=== PATIENT | female | born 1945 | race Caucasian/White ===

== ENCOUNTER 2019-07-24 15:54 | Inpatient (IN) | payer OTHER ==
[~2019-07-24] VITALS: Ht 162.6 cm; Wt 73.2 kg
[~2019-07-24 15:54] MED LIST: ASPI325T4 PO; LOVA40TA72 PO; POTA80TA PO; QUET100T46 PO; TRAZ100T2 PO
[2019-07-24] MEDS ORDERED: IPRATROPIUM BROM 0.5 MG/2.5ML INH SOL NEB ONE ×2 (16:15→18:30)
[2019-07-24] MEDS ORDERED: methylPREDNISolone SOD SUCC 125 MG/2 ML VL IV ONE (16:15)
[2019-07-24] MEDS ORDERED: ALBUTEROL SULF 2.5 MG/0.5ML(0.5%) NEB SOLN NEB ONE ×2 (16:15→18:30)
[2019-07-24] MEDS ORDERED: LEVOFLOXACIN 500MG 100 ML IV ONE (16:15)
[2019-07-24 16:42] LABS: Basophils # (auto) 0 uL; Basophils % (auto) 0.5 % (0.0-2.0); Eosinophils # (auto) 0.2 uL; Eosinophils % (auto) 2.5 % (0.0-7.0); Hematocrit 39.5 % (36.0-46.0); Hemoglobin 13.1 g/dL (12.2-16.2); Lymphocytes # (auto) 1.6 uL; Lymphocytes % (auto) 18.6 % (10.0-50.0); Mean Corpuscular Hemoglobin 28.6 pg (28.0-32.0); Mean Corpuscular Hgb Conc. 33.1 g/dL (32.0-36.0); Mean Corpuscular Volume 86.4 fL (80.0-100.0); Monocytes # (auto) 0.6 uL; Monocytes % (auto) 7.2 % (0.0-12.0); Neutrophils # (auto) 5.9 uL; Neutrophils % (auto) 71.2 % (37.0-80.0); Platelet Count (auto) 298 10^3/uL (140-450); Red Blood Cells 4.57 10^6/uL (4.0-5.20); Red Cell Distribution Width 14.2 % (11.8-14.3); White Blood Cell 8.3 10^3/uL (4.4-10.8)
[2019-07-24] MEDS ORDERED: diphenhdrAMINE HCL 50 MG/1 ML VL IV ONE (16:45)
[2019-07-24 16:50] LABS: Albumin 3.3 g/dL (3.4-5.0); Anion Gap 8 (5-15); Aspartate Aminotransferase 193 U/L (15-37); BUN/Creatinine Ratio 10.4; Blood Urea Nitrogen 8 mg/dL (7-18); Calcium 8.6 mg/dL (8.5-10.1); Carbon Dioxide 24 mmol/L (21-32); Chloride 104 mmol/L (98-107); GFR African American 95 mL/min; GFR Non-African American 78 mL/min; Glucose 110 mg/dL (74-106); Potassium 3.3 mmol/L (3.5-5.1); Sodium 136 mmol/L (136-145)
[2019-07-24 16:54] LABS: Alanine Aminotransferase 145 U/L (13-56); Alkaline Phosphatase 192 U/L (45-117); Bilirubin, Total 0.4 mg/dL (0.2-1.0); Total Protein 7.5 g/dL (6.4-8.2)
[2019-07-24 17:32] LABS: INR 0.98 (0.9-1.15); Partial Thromboplastin Time 30.2 sec (23.64-32.05)
[2019-07-24 19:43] LABS: Urine Bacteria NONE SEEN /hpf (None Seen); Urine Blood TRACE /uL (Negative); Urine Mucus FEW (None Seen); Urine Specific Gravity 1.005 (1.001-1.035); Urine WBC 1 /hpf (0 - 5)
[2019-07-24] MEDS ORDERED: OXYB5TAB24 PO (20:59)
[2019-07-24] MEDS ORDERED: NITR100C6 PO (20:59)
[2019-07-24] MEDS ORDERED: GABA100C9 PO (20:59)
[2019-07-24] MEDS ORDERED: TEMAZEPAM 15 MG CAP PO PRN (21:15)
[2019-07-24] MEDS ORDERED: POTASSIUM CHL 20 Meq TABLET PO ONE (21:15)
[2019-07-24] MEDS ORDERED: ACETAMINOPHEN 325 MG TAB PO PRN (21:15)
[2019-07-24] MEDS ORDERED: ONDANSETRON HCL 4 MG/2 ML VIAL IV PRN (21:15)
[2019-07-24] MEDS ORDERED: DOCUSATE SOD 100 MG CAP PO PRN (21:15)
[2019-07-24] MEDS: QUEtiapine FUMARATE 100 MG TAB PO SCH (22:00)
[2019-07-24] MEDS: methylPREDNISolone SOD SUCC 125 MG/2 ML VL IV SCH (22:03)
[2019-07-24] MEDS: FAMOTIDINE 20 MG TAB PO SCH (22:03)
[2019-07-24] MEDS: GABAPENTIN 100 MG CAP PO SCH (22:03)
[2019-07-24] MEDS ORDERED: traZODone HCL 50 MG TAB PO ONE (22:15)
[2019-07-24] MEDS ORDERED: IOHEXOL 350 MG/ML 100ML IJ ONE (22:52)
[2019-07-25] VITALS (7 sets, daily range): BP systolic 81–130; BP diastolic 53–71
--- NOTE | 2019-07-25 00:15 | NUR ---
Telemetry admit from ER JOSUÉDENZEL Mendiola admitted to Telemetry unit after SBAR received. Patient oriented to Asiya Fontana, primary RN, unit, room, bed, and unit policies regarding patient care and visiting hours. Patient now on continuous telemetry monitoring, tele box #16 and telemetry reading on arrival to unit is SR 90. Patient placed on bedside oxygen, weighed by bedscale and encouraged to call if they need something. All questions and concerns addressed, patient verbalized understanding.
--- NOTE | 2019-07-25 00:23 | NUR ---
RT AT BEDSIDE FOR SCHEDULED BREATHING TREATMENT
[2019-07-25] MEDS: ALBUTEROL SULF 2.5 MG/0.5ML(0.5%) NEB SOLN NEB SCH ×4 (00:25→17:42)
[2019-07-25] MEDS: IPRATROPIUM BROM 0.5 MG/2.5ML INH SOL NEB SCH ×4 (00:25→17:41)
--- NOTE | 2019-07-25 00:30 | NUR ---
PATIENT WAS PLACED ON OXYMIZER O2 AT 6L
--- NOTE | 2019-07-25 02:00 | NUR ---
PLACED PATIENT ON BEDPAN. PATIENT IS SOB WITH MINIMAL EXERTION.
[2019-07-25 06:23] LABS: Basophils # (auto) 0 uL; Basophils % (auto) 0.1 % (0.0-2.0); Eosinophils # (auto) 0 uL; Hematocrit 38.5 % (36.0-46.0); Lymphocytes # (auto) 0.8 uL; Lymphocytes % (auto) 8.9 % (10.0-50.0); Mean Corpuscular Hgb Conc. 33.8 g/dL (32.0-36.0); Mean Corpuscular Volume 85.8 fL (80.0-100.0); Monocytes # (auto) 0.1 uL; Monocytes % (auto) 1.6 % (0.0-12.0); Neutrophils # (auto) 7.6 uL; Neutrophils % (auto) 89.4 % (37.0-80.0); Platelet Count (auto) 307 10^3/uL (140-450); Red Blood Cells 4.49 10^6/uL (4.0-5.20); Red Cell Distribution Width 14.1 % (11.8-14.3); White Blood Cell 8.5 10^3/uL (4.4-10.8)
[2019-07-25 06:37] LABS: Albumin 3.3 g/dL (3.4-5.0); Calcium 9.3 mg/dL (8.5-10.1); Potassium 4.4 mmol/L (3.5-5.1)
--- NOTE | 2019-07-25 06:40 | NUR ---
PATIENT UP TO COMMODE WITH ASSISTANCE AND USING OXYMIZER AT 6L. PATIENT TOLERATED WELL, ASSISTED PATIENT BACK TO BED. BED RAILS UP X2, HEAD OF BED IS UP >30 DEGREES.
[2019-07-25 06:42] LABS: BUN/Creatinine Ratio 12.9; Bilirubin, Total 0.2 mg/dL (0.2-1.0); Total Protein 7.7 g/dL (6.4-8.2)
--- NOTE | 2019-07-25 06:45 | NUR ---
BACK PAIN PATIENT COMPLAINS OF BACK PAIN 04/26. WILL ADMINISTER PAIN MED PER MD ORDERS ON eMAR.
[2019-07-25] MEDS: HYDROcodone-ACET 5/325MG TAB PO PRN ×3 (06:48→22:18)
--- NOTE | 2019-07-25 07:15 | NUR ---
Opening Shift Note Report received and assumed care of patient, awake,alert and oriented No S/S of distress or pain. Instructed on POC and Nursing routines, Patient reminded and Instructed to call for assistance,call light within reach patient verbalized understanding. will continue to monitor for changes Q1hr and PRN.
[2019-07-25] MEDS ORDERED: LEVOFLOXACIN 500MG 100 ML IV SCH (10:00)
[2019-07-25] MEDS: OXYBUTYNIN CHL 5 MG TAB PO SCH (10:32)
[2019-07-25] MEDS: FAMOTIDINE 20 MG TAB PO SCH ×2 (10:32→21:21)
[2019-07-25] MEDS: ENOXAPARIN SOD 40 MG/0.4 ML SYRINGE SC SCH (10:32)
--- NOTE | 2019-07-25 12:15 | NUR ---
PER REPORT FROM SPEECH AND LANGUAGE CLINICIAN NURSE,PATIENT HAD A REACTION TO LEVAQUIN. DR. Elayne YORK CALLED AND INFORMED,CLARIFIED IF OK TO GIVE DOSE,RECEIVED INSTRUCTION TO CONTINUE TO GIVE LEVAQUIN AND SOLUMEDROL
[2019-07-25] MEDS: methylPREDNISolone SOD SUCC 125 MG/2 ML VL IV SCH ×2 (12:39→21:21)
--- NOTE | 2019-07-25 14:00 | NUR ---
PATIENT OOB TO BSC,SLIGHT SOB BUT NO DISTRESS NOTED WITH ACTIVITY
--- NOTE | 2019-07-25 17:47 | NUR ---
VISITING AT BEDSIDE
--- NOTE | 2019-07-25 19:12 | NUR ---
Resting no distress no discomfort,report given to Asiya DOMINGUEZ RN
--- NOTE | 2019-07-25 19:15 | NUR ---
OPENING SHIFT NOTE- NOC PATIENT IS ALERT AND ORIENTED X4 AND IS SITTING UP IN BED. PATIENT IS WEARING OXYMIZER AT 6L AND TOLERATES WELL. DISCUSSED POC WITH PATIENT AND INSTRUCTED PATIENT TO CALL PRN; PATIENT VERBALIZED UNDERSTANDING. WILL CONTINUE TO MONITOR Q1H AND PRN.
[2019-07-25] MEDS: QUEtiapine FUMARATE 100 MG TAB PO SCH (19:35)
--- NOTE | 2019-07-25 19:45 | NUR ---
ASSISTED PATIENT WITH ORAL CARE.
[2019-07-25] MEDS: GABAPENTIN 100 MG CAP PO SCH (21:21)
--- NOTE | 2019-07-25 22:55 | NUR ---
LABORER TREE TAPPING NASEEM AWARE THAT PATIENT WILL BE NPO FOR ORDERED ULTRA SOUND IN THE MORNING.
--- NOTE | 2019-07-25 23:20 | NUR ---
PATIENT UP TO BEDSIDE COMMODE; SOB WITH LIGHT EXERTION. PATIENT ASSISTED BACK INTO BED.
--- NOTE | 2019-07-26 | NUR ---
PATIENT NPO PATIENT IS AWARE OF NPO STATUS FOR ULTRASOUND IN THE MORNING.
[2019-07-26 04:49] VITALS: BP 123/64
[2019-07-26 06:58] LABS: Basophils # (auto) 0 uL; Basophils % (auto) 0.2 % (0.0-2.0); Eosinophils # (auto) 0 uL; Hemoglobin 12.8 g/dL (12.2-16.2); Lymphocytes # (auto) 1.4 uL; Lymphocytes % (auto) 6.6 % (10.0-50.0); Mean Corpuscular Hemoglobin 28.3 pg (28.0-32.0); Mean Corpuscular Hgb Conc. 32.9 g/dL (32.0-36.0); Monocytes # (auto) 0.7 uL; Monocytes % (auto) 3.1 % (0.0-12.0); Neutrophils # (auto) 18.9 uL; Neutrophils % (auto) 90.1 % (37.0-80.0); Platelet Count (auto) 331 10^3/uL (140-450); Red Blood Cells 4.53 10^6/uL (4.0-5.20); Red Cell Distribution Width 14.4 % (11.8-14.3)
[2019-07-26 07:08] LABS: Calcium 9.5 mg/dL (8.5-10.1); Potassium 4.8 mmol/L (3.5-5.1)
[2019-07-26 07:10] LABS: BUN/Creatinine Ratio 17.2
--- NOTE | 2019-07-26 07:30 | NUR ---
Opening Shift Note Assumed care of patient, awake, alert, and oriented x4. No S/S of distress/SOB, but patient is reporting generalized body pain of 7/10. IV is in right forearm 20 gauge and is asymptomatic, intact, patent, and saline locked. Bed is locked and in lowest position and call light is within reach. Instructed on POC and to call for assist PRN, and patient verbalized understanding. Will continue to monitor for changes Q1hr and PRN.
--- NOTE | 2019-07-26 07:30 | NUR ---
personnel technician at bedside.
[2019-07-26] MEDS: IPRATROPIUM BROM 0.5 MG/2.5ML INH SOL NEB SCH ×3 (07:36→11:31)
[2019-07-26] MEDS: ALBUTEROL SULF 2.5 MG/0.5ML(0.5%) NEB SOLN NEB SCH ×3 (07:36→11:31)
[2019-07-26 08:30] VITALS: BP 113/62
[2019-07-26] MEDS: methylPREDNISolone SOD SUCC 125 MG/2 ML VL IV SCH (08:58)
[2019-07-26] MEDS: FAMOTIDINE 20 MG TAB PO SCH (08:59)
[2019-07-26] MEDS: ENOXAPARIN SOD 40 MG/0.4 ML SYRINGE SC SCH (08:59)
[2019-07-26] MEDS: HYDROcodone-ACET 5/325MG TAB PO PRN ×2 (09:00→13:17)
[2019-07-26] MEDS: OXYBUTYNIN CHL 5 MG TAB PO SCH (09:00)
[2019-07-26] MEDS ORDERED: LEVOFLOXACIN 500 MG TAB PO SCH (10:00)
--- NOTE | 2019-07-26 11:00 | NUR ---
Received call from Dr. Elayne Gomez MD, that patient will possibly be transferred to [facility]
[2019-07-26 12:27] VITALS: BP 141/72
--- NOTE | 2019-07-26 16:03 | NUR ---
Transfer: Per DANIELLE at [facility], Pt has been accepted by DR. Jiménez at [facility], [phone]. [facility] will garbage pick up man pt at 1700hrs . [facility] auth [id number]. RN notified
[2019-07-26 17:06] VITALS: BP 127/74
--- NOTE | 2019-07-26 17:13 | NUR ---
Transport PICKUP [facility] transported patient via gurney to [facility]; no distress noted at time of departure. Called [facility] to give report to accepting RN; was told they would call me back. Awaiting reply.
[2019-07-27 12:33] LABS: Hepatitis A Ab IgM Negative
[2019-07-27 13:53] LABS: Hepatitis B Core IgM Negative
[2019-07-27 13:57] LABS: Hepatitis B Surface Antigen Negative (Negative)
[2019-07-27 14:09] LABS: Hepatitis C Antibody Negative (Negative)
== END 2019-07-26 17:20 | disposition short-term general hospital (02) | DRG 189 ==
LOC: EDBD 15:54 → ER 15:59 → TELE 16:00 → TELE-EAST 23:29
PROVIDERS: ADMIT Nurse Practitioner; ATTEND Internal Medicine
DX: J96.21 Acute and chronic respiratory failure with hypoxia (principal); E44.0 Moderate protein-calorie malnutrition; E78.5 Hyperlipidemia, unspecified; J43.9 Emphysema, unspecified; E87.6 Hypokalemia; R94.5 Abnormal results of liver function studies; G62.9 Polyneuropathy, unspecified; G47.00 Insomnia, unspecified; D72.829 Elevated white blood cell count, unspecified; F17.210 Nicotine dependence, cigarettes, uncomplicated; F32.9 Major depressive disorder, single episode, unspecified; F41.9 Anxiety disorder, unspecified; N28.1 Cyst of kidney, acquired; G89.4 Chronic pain syndrome; I10 Essential (primary) hypertension; Z99.81 Dependence on supplemental oxygen; Z68.27 Body mass index [BMI] 27.0-27.9, adult; Z90.710 Acquired absence of both cervix and uterus; Z88.0 Allergy status to penicillin; Z82.49 Family history of ischemic heart disease and other diseases of the circulatory system; Z90.49 Acquired absence of other specified parts of digestive tract
CPT/HCPCS: 36415; 71045; 71275; 74176; 76700; 80048; 80053; 80074; 80320; 81001; 83605; 83690; 83880; 84484; 85025; 85379; 85610; 85730; 87040; 93970; 94640; 96365; 96366; 96375; G0378; J1956

== ENCOUNTER 2020-08-15 04:51 | Inpatient (IN) | payer OTHER ==
[~2020-08-15] VITALS: Ht 167.6 cm; Wt 32.9 kg
[~2020-08-15 04:51] MED LIST changes: -ASPI325T4 PO; +GABA100C9 PO; +NITR100C6 PO; +OXYB5TAB24 PO; -POTA80TA PO; -QUET100T46 PO; -TRAZ100T2 PO; +TRAZ100T3 PO
[2020-08-15 05:31] LABS: Basophils # (auto) 0 10 ^3/uL (0-0.2); Basophils % (auto) 0.2 % (0.0-2.0); Eosinophils # (auto) 0.1 10 ^3/uL (0-0.8); Eosinophils % (auto) 0.5 % (0.0-7.0); Hematocrit 40.2 % (36.0-46.0); Hemoglobin 13.2 g/dL (12.2-16.2); Lymphocytes # (auto) 1.1 10 ^3/uL (0.4-5.4); Lymphocytes % (auto) 10.4 % (10.0-50.0); Mean Corpuscular Hgb Conc. 32.9 g/dL (32.0-36.0); Mean Corpuscular Volume 85.2 fL (80.0-100.0); Monocytes # (auto) 0.7 10 ^3/uL (0-1.3); Monocytes % (auto) 6.9 % (0.0-12.0); Neutrophils # (auto) 8.4 10 ^3/uL (1.6-8.6); Nucleated Red Blood Cells % 0.1 %; Platelet Count (auto) 326 10^3/uL (140-450); Red Blood Cells 4.72 10^6/uL (4.0-5.20); Red Cell Distribution Width 15.1 % (11.8-14.3); White Blood Cell 10.2 10^3/uL (4.4-10.8)
[2020-08-15 05:51] LABS: Chloride 96 mmol/L (98-107); Potassium 3.7 mmol/L (3.5-5.1); Sodium 131 mmol/L (136-145)
[2020-08-15 05:52] LABS: INR 1.08 (0.9-1.15); Partial Thromboplastin Time 28.9 sec (23.0-31.2)
[2020-08-15 06:01] LABS: Alanine Aminotransferase 95 U/L (13-56); Albumin 2.9 g/dL (3.4-5.0); Alkaline Phosphatase 266 U/L (45-117); Anion Gap 11 (5-15); Aspartate Aminotransferase 135 U/L (15-37); BUN/Creatinine Ratio 23.4; Bilirubin, Total 0.3 mg/dL (0.2-1.0); Blood Urea Nitrogen 18 mg/dL (7-18); Calcium 9.1 mg/dL (8.5-10.1); Carbon Dioxide 24 mmol/L (21-32); GFR African American 95 mL/min; GFR Non-African American 78 mL/min; Glucose 103 mg/dL (74-106)
[2020-08-15] MEDS ORDERED: MORPHINE SULF INJ 2 MG/ML SYRINGE 1ML IV ONE (06:30)
[2020-08-15] MEDS ORDERED: ONDANSETRON HCL 4 MG/2 ML VIAL IV ONE (06:30)
[2020-08-15] MEDS ORDERED: IPRATROPIUM BROM 0.5 MG/2.5ML INH SOL NEB ONE (09:15)
[2020-08-15] MEDS ORDERED: methylPREDNISolone SOD SUCC 125 MG/2 ML VL IV ONE (09:15)
[2020-08-15] MEDS ORDERED: ALBUTEROL SULF 2.5 MG/0.5ML(0.5%) NEB SOLN NEB ONE (09:15)
[2020-08-15] MEDS ORDERED: MORPHINE SULF INJ 2 MG/ML SYRINGE 1ML IV PRN (11:00)
[2020-08-15] MEDS ORDERED: ALBUTEROL SULF 2.5 MG/0.5ML(0.5%) NEB SOLN NEB PRN (11:00)
[2020-08-15] MEDS ORDERED: traMADol HCL 50 MG TAB PO PRN (11:00)
[2020-08-15] MEDS ORDERED: NITROGLYCERIN 0.4 MG SL TAB SL PRN (11:00)
[2020-08-15] MEDS ORDERED: LACTULOSE 20Gm/30ML SOLN PO PRN (11:00)
[2020-08-15] MEDS ORDERED: ONDANSETRON HCL 4 MG/2 ML VIAL IV PRN (11:00)
[2020-08-15] MEDS ORDERED: ACETAMINOPHEN 500 MG TAB PO PRN ×2 (11:00)
[2020-08-15] MEDS ORDERED: SODIUM CHLORIDE 0.9% 1,000 ML IV SCH (11:00)
[2020-08-15] MEDS: levoFLOXacin 500MG 100 ML IV SCH (11:29)
[2020-08-15] MEDS ORDERED: TRAZ-181 PO (11:55)
[2020-08-15] MEDS: IPRATROPIUM BROM 0.5 MG/2.5ML INH SOL NEB SCH ×2 (12:00→19:41)
[2020-08-15] MEDS: ALBUTEROL SULF 2.5 MG/0.5ML(0.5%) NEB SOLN NEB SCH ×2 (12:00→19:40)
[2020-08-15] MEDS ORDERED: ALBUTEROL SULF HFA 90MCG INH 200DOSE IN SCH (14:00)
[2020-08-15 14:21] VITALS: BP 114/45
[2020-08-15] MEDS: MORPHINE SULF INJ 2 MG/ML SYRINGE 1ML IV PRN ×2 (17:15→22:36)
--- NOTE | 2020-08-15 20:30 | NUR ---
Telemetry admit from ER WITHARIANNADENZEL Mendiola admitted to Telemetry unit after SBAR not received. Patient oriented to Cristiana Riley, RN primary RN, unit, room, bed, and unit policies regarding patient care and visiting hours. Patient now on continuous telemetry monitoring, tele box #77 and telemetry reading on arrival to unit is SR 94. Patient placed on bedside oxygen, oxymizer @ 8L, weighed by bedscale and encouraged to call if they need something. Safety measures in place, bed in lowest locked position, bed rails raised x2, call light within reach. All questions and concerns addressed, patient verbalized understanding.
[2020-08-15 21:00] VITALS: BP 124/72
[2020-08-15] MEDS ORDERED: ATORVASTATIN 20 MG TAB PO SCH (22:00)
[2020-08-15] MEDS ORDERED: CARVEDILOL 3.125 MG TAB PO SCH (22:00)
[2020-08-15] MEDS ORDERED: BUDESONIDE (INHALATION) 180 MCG IH IN SCH (22:00)
[2020-08-15] MEDS: FAMOTIDINE 20 MG TAB PO SCH (22:30)
[2020-08-15 23:25] VITALS: BP 124/72
[2020-08-16] MEDS: IPRATROPIUM BROM 0.5 MG/2.5ML INH SOL NEB SCH ×4 (00:01→17:58)
[2020-08-16] MEDS: ALBUTEROL SULF 2.5 MG/0.5ML(0.5%) NEB SOLN NEB SCH ×4 (00:01→17:58)
--- NOTE | 2020-08-16 00:47 | NUR ---
Pt scheduled to take Coreg. Pt states that she does not take Coreg at home, no history of heart failure or high blood pressure. Pt refused med. Spoke with LUPILLO Abreu regarding medication, ok to DC.
--- NOTE | 2020-08-16 00:49 | NUR ---
Pt states that she takes Trazadone HS for sleep. Spoke with LUPILLO Abreu about an order for trazadone, MECHANICAL ENGINEERING LECTURER refused.
[2020-08-16] MEDS ORDERED: IPRAAER6 IN (03:32)
[2020-08-16 05:00] VITALS: BP 131/71
--- NOTE | 2020-08-16 05:01 | NUR ---
Pt requesting to remove oxymizer because it irritates her nose, requesting nasal cannula instead. Pt provided with nasal cannula at 4L, saturating at 91%. Will continue to monitor.
[2020-08-16 06:52] LABS: Hematocrit 33.7 % (36.0-46.0); Hemoglobin 11.5 g/dL (12.2-16.2); Mean Corpuscular Hemoglobin 28.8 pg (28.0-32.0); Mean Corpuscular Hgb Conc. 34.1 g/dL (32.0-36.0); Mean Corpuscular Volume 84.4 fL (80.0-100.0); Platelet Count (auto) 311 10^3/uL (140-450); Red Cell Distribution Width 15.4 % (11.8-14.3); White Blood Cell 11.4 10^3/uL (4.4-10.8)
[2020-08-16 07:17] LABS: Albumin 2.7 g/dL (3.4-5.0); BUN/Creatinine Ratio 20.3; Bilirubin, Total 0.2 mg/dL (0.2-1.0); Total Protein 7.2 g/dL (6.4-8.2)
[2020-08-16 07:22] LABS: Basophils % (manual) 0 (0.0-2.0); Blast Cells 0; Promyelocytes % 0; Reactive Lymphocytes 0
[2020-08-16 08:00] VITALS: BP 125/62
[2020-08-16 08:06] LABS: Band Neutrophils % (manual) 1; Eosinophils % (manual) 1 (0-7); Lymphocytes % (manual) 20 (10.0-50.0); Metamyelocytes % 1; Monocytes % (manual) 1 (0-12); Myelocytes % 2
[2020-08-16 08:25] VITALS: BP 125/62
--- NOTE | 2020-08-16 09:30 | NUR ---
Received a call from Dedra Gómez at [facility] [phone] gave verbal update on the patient, state the patient is on Observation and she needed the progress notes from today, express to her I would send then when the Md comes and sees the patient. Faxed Post Stabilization Form due to Observation status.
[2020-08-16] MEDS ORDERED: DexAMETHasone SOD PHOS 10MG/1ML VIAL INJ IV SCH (10:00)
[2020-08-16] MEDS ORDERED: ZINC SULFATE 220mg CAP or TAB PO SCH (10:00)
[2020-08-16] MEDS ORDERED: CHOLECALCIFEROL (VITD3) 1,000UNIT=25mCg TAB PO SCH (10:00)
[2020-08-16] MEDS ORDERED: ASPirin 81 mg TAB PO SCH (10:00)
[2020-08-16] MEDS ORDERED: ENOXAPARIN SOD 40 MG/0.4 ML SYRINGE SC SCH (10:00)
[2020-08-16] MEDS ORDERED: ASCORBIC ACID 500 MG TAB PO SCH (10:00)
[2020-08-16] MEDS: FAMOTIDINE 20 MG TAB PO SCH (12:02)
[2020-08-16] MEDS: levoFLOXacin 500MG 100 ML IV SCH (12:03)
[2020-08-16 12:29] VITALS: BP 119/66
--- NOTE | 2020-08-16 13:20 | NUR ---
Faxed the Home Health Safety Eval to [facility] [phone] with discharge summary and H&P
--- NOTE | 2020-08-16 13:45 | NUR ---
Spoke with Dedra VALDEZ from [facility] [phone] stated they will set up the Home Safety Eval with [facility] [phone]. When patient is discharged
--- NOTE | 2020-08-16 16:12 | NUR ---
Assessment Patient is a 75-year-old female who is alert and oriented. Prior to admission patient lived with and functioned independently. Patient can care for his own ADL's. patient has a nebulizer, oxygen and walker for home use. Per patient she will return home to her prior living arrangements post discharge and family will transport patient. Informed patient she has the right to participate in all discharge planning. Patient verbalized understanding and agreed to discharge plan. Regarding social service consult for safety evaluation. COURTNEY Thompson informed me COURTNEY Moreira with [facility] has arranged [facility].
[2020-08-16] MEDS ORDERED: PRED20TA2 PO (16:31)
[2020-08-16] MEDS ORDERED: IPR002IS NEB (16:31)
[2020-08-16] MEDS: MORPHINE SULF INJ 2 MG/ML SYRINGE 1ML IV PRN (16:31)
[2020-08-16] MEDS ORDERED: LEVO500T21 PO (16:31)
[2020-08-16] MEDS ORDERED: ALBU0.5N2 NEB (16:31)
[2020-08-16 17:00] VITALS: BP 111/60
[2020-08-16] MEDS ORDERED: DEXT1SYP6 PO (17:42)
[2020-08-16 18:07] VITALS: BP 111/60
--- NOTE | 2020-08-16 18:42 | NUR ---
Discharge instructions given as ordered. Encourage to follow up with PMD as instructed. All questions and concerns addressed. Patient verbalized understanding. Medication reconciliation form completed and copy given to patient. No Home medications held in Pharmacy and none to be returned to patient, and no needed vaccines given. IV removed with catheter intact, pressure dressing applied. Telemetry unit returned to ICU.
--- NOTE | 2020-08-16 19:01 | NUR ---
Patient taken to vehicle via wheelchair with all personal belongings, accompanied by staff and family member. No distress noted at time of departure.
== END 2020-08-16 19:00 | disposition home health service (06) | DRG 191 ==
LOC: ER 04:51 → EDBD 04:51 → TELE 04:52 → TELE-WESTW 20:15
PROVIDERS: ADMIT Internal Medicine; ATTEND Hospitalist
DX: J44.1 Chronic obstructive pulmonary disease with (acute) exacerbation (principal); J96.10 Chronic respiratory failure, unspecified whether with hypoxia or hypercapnia; E44.0 Moderate protein-calorie malnutrition; R00.0 Tachycardia, unspecified; E78.5 Hyperlipidemia, unspecified; I10 Essential (primary) hypertension; G62.9 Polyneuropathy, unspecified; F41.9 Anxiety disorder, unspecified; F32.9 Major depressive disorder, single episode, unspecified; Z88.0 Allergy status to penicillin; Z82.49 Family history of ischemic heart disease and other diseases of the circulatory system; Z90.710 Acquired absence of both cervix and uterus; Z99.81 Dependence on supplemental oxygen; Z90.49 Acquired absence of other specified parts of digestive tract; Z20.828 Contact with and (suspected) exposure to other viral communicable diseases
CPT/HCPCS: 36415; 36600; 71045; 80053; 82550; 82805; 83880; 84443; 84484; 85007; 85025; 85027; 85379; 85610; 85652; 85730; 86141; 87426; 87804; 93005; 93306; 94640; 94644; 96361; 96374; 96375; 99291; G0378; J1956; J2405